=== PATIENT | female | born 1995 | race Caucasian/White ===

== ENCOUNTER 2019-09-22 12:30 | Emergency (ER) | payer MEDICAID ==
[~2019-09-22] VITALS: Ht 167.6 cm; Wt 109.3 kg
[2019-09-22 12:38] VITALS: Ht 167.6 cm; Wt 109.3 kg
[2019-09-22 13:37] LABS: BASOPHIL % 0.6 % (0-2); PLATELET COUNT 249 x10^3mcL (130-400); RED CELL DISTRIBUTION WIDTH 13.4 % (11.5-14.5)
[2019-09-22 13:46] LABS: CALCIUM 8.9 mg/dL (8.5-10.1); CARBON DIOXIDE 34.1 mmol/L (21-32); CHLORIDE SERUM 102 mmol/L (98-107); CREATININE SERUM 0.9 mg/dL (0.6-1.0); GFR1 > 60 mL/min; GLUCOSE SERUM 121 mg/dL (74-106); SODIUM SERUM 138 mmol/L (136-145)
[2019-09-22 13:50] LABS: ALKALINE PHOSPHATASE 82 U/L (46-116); ALT/SGPT 19 U/L (14-59); AST/SGOT 8 U/L (15-37); BILIRUBIN TOTAL 0.3 mg/dL (0.20-1.00); LIPASE 117 IU/L (73-393); TOTAL PROTEIN, SERUM 7.4 g/dL (6.4-8.2)
[2019-09-22 13:56] LABS: ALBUMIN 3.3 g/dL (3.4-5.0)
[2019-09-22 15:00] VITALS: BP 130/70
== END 2019-09-22 15:00 | disposition home or self-care (01) ==
LOC: ED 12:30
PROVIDERS: Emergency Medicine
DX: K29.70 Gastritis, unspecified, without bleeding (principal)
CPT/HCPCS: J2270; J2405; J7030